=== PATIENT | female | born 1935 | race Caucasian/White ===

== ENCOUNTER → 2016-11-30 | Outpatient (CLI) | payer MEDICARE ==
[2016-11-30 07:56] LABS: Basophils # (A) 0.1 k/uL (0-0.2); Basophils % (A) 1 %; CH 30.8; CHCM 31.8; Eosinophils # (A) 0.1 k/uL (0-0.7); Eosinophils % (A) 1 %; HCT 41.7 % (34.0-46.0); HDW 2.13; HGB 13.2 gm/dL (11.4-16.0); Luc # (Auto) 0.15; Luc % (Auto) 2; Lymphocytes % (A) 14 %; MCH 30.7 pg (25.0-35.0); MCHC 31.6 g/dL (31.0-37.0); MCV 97.3 fL (80.0-100.0); Mean Platelet Volume 6.9; Monocytes # (A) 0.4 k/uL (0-1.0); Monocytes % (A) 5 %; Neutrophils # (A) 5.8 k/uL (1.3-7.7); Neutrophils % (A) 78 %; RBC 4.29 m/uL (3.80-5.40); RDW 13.4 % (11.5-15.5); WBC 7.4 k/uL (3.8-10.6); WBC (Perox) 7.74
[2016-11-30 08:10] LABS: ALT 29 U/L (9-52); AST 23 U/L (14-36); Alkaline Phosphatase 61 U/L (38-126); Anion Gap 8 mmol/L; Blood Urea Nitrogen 17 mg/dL (7-17); Calcium 9.5 mg/dL (8.4-10.2); Carbon Dioxide 33 mmol/L (22-30); Chloride 101 mmol/L (98-107); Cholesterol 191 mg/dL (<200); Glucose 93 mg/dL (74-99); HDL Cholesterol 81 mg/dL (40-60); Non-African American GFR(MDRD) >60 (>60 ml/min/1.73 sqM); Potassium 3.7 mmol/L (3.5-5.1); Sodium 142 mmol/L (137-145); Total Bilirubin 0.7 mg/dL (0.2-1.3); Total Protein 6.9 g/dL (6.3-8.2); Triglycerides 91 mg/dL (<150)
== END ==
LOC: LABWHC1 07:17
PROVIDERS: ATTEND Internal Medicine Geriatric Medicine
DX: I10 Essential (primary) hypertension (principal); E78.00 Pure hypercholesterolemia, unspecified; E03.9 Hypothyroidism, unspecified; E55.9 Vitamin D deficiency, unspecified
CPT/HCPCS: 36415; 80053; 80061; 82306; 84439; 84443; 85025

== ENCOUNTER → 2017-07-16 | Outpatient (CLI) | payer MEDICARE ==
--- NOTE | 2017-07-17 10:35 | MM ---
Reason for exam: screening (asymptomatic). Last mammogram was performed 1 year ago. History: Patient is postmenopausal and history of other cancer. Family history of breast cancer in sister at age 60. Benign ultrasound-guided core biopsy of the left breast, February 16, 2004. Benign ultrasound-guided core biopsy of the right breast, August 06, 2003. Took hormonal contraceptives for 10 years beginning at age 32. Took estrogen for 10 years beginning at age 52. Physical Findings: A clinical breast exam by your physician is recommended on an annual basis and results should be correlated with mammographic findings. MG 3D Screening Mammo W/Cad Bilateral CC and MLO view(s) were taken. Prior study comparison: July 10, 2016, bilateral MG 3d screening mammo w/cad. March 18, 2015, bilateral MG screening mammo w CAD. The breast tissue is heterogeneously dense. This may lower the sensitivity of mammography. Previous mammotome biopsy within the left breast. Focal asymmetry upper outer quadrant of the right breast, stable. No significant changes when compared with prior studies. ASSESSMENT: Benign, BI-RAD 2 RECOMMENDATION: Routine screening mammogram of both breasts in 1 year.
== END | disposition home or self-care (01) ==
LOC: RADMAMWWP 09:58
PROVIDERS: ATTEND Internal Medicine Geriatric Medicine
DX: Z12.31 Encounter for screening mammogram for malignant neoplasm of breast (principal)
CPT/HCPCS: 77063; G0202

== ENCOUNTER → 2018-07-25 | Outpatient (CLI) | payer MEDICARE ==
--- NOTE | 2018-07-28 11:57 | MM ---
Reason for exam: screening (asymptomatic). Last mammogram was performed 1 year ago. History: Patient is postmenopausal and history of other cancer. Family history of breast cancer in sister at age 60. Benign ultrasound-guided core biopsy of the left breast, February 16, 2004. Benign ultrasound-guided core biopsy of the right breast, August 06, 2003. Took hormonal contraceptives for 10 years beginning at age 32. Took estrogen for 10 years beginning at age 52. Physical Findings: A clinical breast exam by your physician is recommended on an annual basis and results should be correlated with mammographic findings. MG 3D Screening Mammo W/Cad Bilateral CC and MLO view(s) were taken. XCCL view(s) were taken of the right breast. Prior study comparison: July 16, 2017, bilateral MG 3d screening mammo w/cad. July 10, 2016, bilateral MG 3d screening mammo w/cad. Finding #1: There is a 12 mm equal density (isodense), round mass in the upper outer quadrant of the right breast. Finding #2: There are typically benign calcifications in both breasts. Previous mammotome biopsy in the left breast. No significant changes in finding since July 16, 2017 and July 10, 2016. ASSESSMENT: Benign, BI-RAD 2 RECOMMENDATION: Routine screening mammogram of both breasts in 1 year.
== END | disposition home or self-care (01) ==
LOC: RADMAMWWP 11:02
PROVIDERS: ATTEND Internal Medicine Geriatric Medicine
DX: Z12.31 Encounter for screening mammogram for malignant neoplasm of breast (principal)
CPT/HCPCS: 77063; 77067

== ENCOUNTER → 2018-08-06 | Outpatient (CLI) | payer MEDICARE ==
--- NOTE | 2018-08-06 12:04 | BD ---
EXAMINATION TYPE: Axial Bone Density DATE OF EXAM: 08/06/2018 CLINICAL HISTORY: Height: 61 inches Weight: 126 pounds FRAX RISK QUESTIONS: Alcohol (3 or more units per day): no Family History (Parent hip fracture): no Glucocorticoids (More than 3mos): no (Ex: prednisone, prednisolone, methylprednisolone, dexamethasone, and hydrocortisone). History of Fracture in Adulthood: no Secondary Osteoporosis: 1. Type 1 Diabetes: no 2. Hyperthyroidism: unsure 3. Menopause before 45: no 4. Malnutrition: no 5. Chronic liver disease: no Rheumatoid Arthritis: no Current Tobacco Use: no RISK FACTORS HISTORY OF: Family History of Osteoporosis: yes Active: yes Diet low in dairy products/other sources of calcium: no Postmenopausal woman: yes Take estrogen and/or progesterone medications: not now How long: Hormonal Contraceptives about 10 years, Estrogen about 10 years Lost more than 2 inches in height since high school: no Frequent falls: no Poor Health: no Hyperparathyroidism: no Adrenal Insufficiency: no MEDICATIONS: Prednisone or other steroids: no Thyroid Medications: yes Which medication: Levothyroxine (low dose) How Long: about 10 years Osteoporosis Medications: no Additional Medications: blood pressure med Additional History: EXAM MEASUREMENTS: Bone mineral densitometry was performed using the [employer] System. Bone mineral density as measured about the Lumbar spine is: ----- L1-L4(G/cm2): 1.448 T Score Values are as follows: ----- L2: 2.3 ----- L3: 2.0 ----- L4: 2.3 ----- L1-L4: 2.2 Bone mineral density has: Decreased -2.5% since study of: 07/30/2016 Bone mineral density about the R hip (g/cm2): 0.943 Bone mineral density about the L hip (g/cm2): 0.955 T Score values are as follows: -----R Neck: -0.7 -----L Neck: -0.6 -----R Total: 0.3 -----L Total: 1.0 Bone mineral density has: Decreased -0.2% since study of: 07/30/2016 IMPRESSION: Normal (Values between +1 and -1 indicate normal bone mass). Consider repeating this study in 5 year s or sooner if there is some new clinical indication. NOTE: T-SCORE=SD OF THE YOUNG ADULT MEAN.
== END | disposition home or self-care (01) ==
LOC: RADBDWWP 07-29 15:21
PROVIDERS: ATTEND Internal Medicine Geriatric Medicine
DX: M81.0 Age-related osteoporosis without current pathological fracture (principal)
CPT/HCPCS: 77080

== ENCOUNTER → 2019-03-10 | Outpatient (CLI) | payer MEDICARE ==
--- NOTE | 2019-03-10 13:31 | XR ---
EXAMINATION TYPE: XR KUB DATE OF EXAM: 03/10/2019 1:26 PM CLINICAL HISTORY: Abdominal and back pain TECHNIQUE: 2 supine KUB images of the abdomen are obtained. COMPARISON: None. FINDINGS: Scattered gas is seen in non-distended small bowel loops. Gas and fecal material is seen in non-distended colon. There is no visceromegaly, pneumoperitoneum, or abnormal calcification apprecia fanta. Elevated right hemidiaphragm. Multilevel moderate spurring of the thoracic spine. IMPRESSION: Overall nonobstructive bowel gas pattern.
--- NOTE | 2019-03-10 13:36 | XR ---
EXAMINATION TYPE: XR thoracic spine complete DATE OF EXAM: 03/10/2019 CLINICAL HISTORY: Midback pain for 2 to 3 weeks TECHNIQUE: Frontal, lateral, and swimmer's view of thoracic spine are obtained. COMPARISON: None. FINDINGS: Thoracic spine show loss of normal thoracic curvature with without evidence of acute fractu re or dislocation. Vertebral body heights and disc space heights are preserved. Mild multilevel spur ring is seen. Visualized ribs are unremarkable bilaterally. IMPRESSION: As above.
== END | disposition home or self-care (01) ==
LOC: RADXRMAIN 12:53
PROVIDERS: ATTEND Nurse Practitioner Family
DX: M43.8X4 Other specified deforming dorsopathies, thoracic region (principal)
CPT/HCPCS: 72072; 74018

== ENCOUNTER → 2019-07-31 | Outpatient (CLI) | payer MEDICARE ==
--- NOTE | 2019-08-03 11:15 | MM ---
Reason for exam: screening (asymptomatic). Last mammogram was performed 1 year ago. History: Patient is postmenopausal and history of other cancer. Family history of breast cancer in sister at age 60. Benign ultrasound-guided core biopsy of the left breast, February 16, 2004. Benign ultrasound-guided core biopsy of the right breast, August 06, 2003. Took hormonal contraceptives for 10 years beginning at age 32. Took estrogen for 10 years beginning at age 52. Physical Findings: A clinical breast exam by your physician is recommended on an annual basis and results should be correlated with mammographic findings. MG 3D Screening Mammo W/Cad Bilateral CC and MLO view(s) were taken. XCCL view(s) were taken of the right breast. Prior study comparison: July 25, 2018, bilateral MG 3d screening mammo w/cad. July 16, 2017, bilateral MG 3d screening mammo w/cad. The breast tissue is heterogeneously dense. This may lower the sensitivity of mammography. There is a stable 12 mm right upper outer quadrant mass back to 2015. Benign appearing bilateral calcifications. No suspicious abnormality. Left biopsy marker noted. No significant changes when compared with prior studies. ASSESSMENT: Benign, BI-RAD 2 RECOMMENDATION: Routine screening mammogram of both breasts in 1 year.
== END | disposition home or self-care (01) ==
LOC: RADMAMWWP 09:53
PROVIDERS: ATTEND Internal Medicine Geriatric Medicine
DX: Z12.31 Encounter for screening mammogram for malignant neoplasm of breast (principal)
CPT/HCPCS: 77063; 77067

== ENCOUNTER → 2019-08-31 | Outpatient (CLI) | payer MEDICARE ==
--- NOTE | 2019-09-01 08:41 | US ---
EXAMINATION TYPE: US kidneys/renal and bladder DATE OF EXAM: 08/31/2019 COMPARISON: NONE CLINICAL HISTORY: N20.0 Kidney Stone. h/o renal stones, last episode of pain was in February, unsure if s he passed them or not. No current symptoms EXAM MEASUREMENTS: Right Kidney: 9.3 x 4.5 x 4.4 cm Left Kidney: 10.3 x 4.3 x 5.6 cm *bowel gas limits exam Right Kidney: No hydronephrosis or masses seen Left Kidney: No hydronephrosis or masses seen Bladder: wnl There is no evidence for hydronephrosis at this point in time. No nephrolithiasis is seen. No afsaneh s are identified. The urinary bladder is anechoic. Bilateral ureteral jets are seen. IMPRESSION: No sonographic evidence of nephrolithiasis or hydronephrosis although overlying bowel gas slightly limits exam.
== END | disposition home or self-care (01) ==
LOC: RADUSWWP 16:02
PROVIDERS: ATTEND Internal Medicine Geriatric Medicine
DX: N20.0 Calculus of kidney (principal)
CPT/HCPCS: 76770

== ENCOUNTER → 2020-11-30 | Outpatient (CLI) | payer MEDICARE ==
--- NOTE | 2020-11-30 16:01 | BD ---
EXAMINATION TYPE: Axial Bone Density DATE OF EXAM: 11/30/2020 COMPARISON: NONE CLINICAL HISTORY: Height: 61 Weight: 130.1 FRAX RISK QUESTIONS: Alcohol (3 or more units per day): no Family History (Parent hip fracture): no Glucocorticoids (More than 3mos): no (Ex: prednisone, prednisolone, methylprednisolone, dexamethasone, and hydrocortisone). History of Fracture in Adulthood: no Secondary Osteoporosis: 1. Type 1 Diabetes: no 2. Hyperthyroidism: no 3. Menopause before 45: no 4. Malnutrition: no 5. Chronic liver disease: no Rheumatoid Arthritis: no Current Tobacco Use: no RISK FACTORS HISTORY OF: Surgery to Spine/Hip(right/left)/Wrist (right/left): no Family History of Osteoporosis: yes Active: yes Diet low in dairy products/other sources of calcium: yes Postmenopausal woman: age 53 Lost more than 2 inches in height since high school: no MEDICATIONS: Thyroid Medications: synthroid How Lon years Additional History: EXAM MEASUREMENTS: Bone mineral densitometry was performed using the [employer] System. Bone mineral density as measured about the Lumbar spine is: ----- L1-L4(G/cm2): 1.443 T Score Values are as follows: ----- L2: 2.5 ----- L3: 1.9 ----- L4: 2.4 ----- L1-L4: 2.2 Bone mineral density has: increased 0.3 % since study of: 08.06.2018 Bone mineral density about the R hip (g/cm2): 0.951 Bone mineral density about the L hip (g/cm2): 0.943 T Score values are as follows: -----R Neck: -0.6 -----L Neck: -0.7 -----R Total: 0.1 -----L Total: 0.8 Bone mineral density has: decreased -2.7 % since study of: 08.06.2018 IMPRESSION: No evidence for osteoporosis or osteopenia. NOTE: T-SCORE=SD OF THE YOUNG ADULT MEAN.
--- NOTE | 2020-12-02 12:09 | MM ---
Reason for exam: screening (asymptomatic). Last mammogram was performed 1 year and 4 months ago. History: Patient is postmenopausal and history of other cancer. Family history of breast cancer in sister at age 60. Benign ultrasound-guided core biopsy of the left breast, February 16, 2004. Benign ultrasound-guided core biopsy of the right breast, August 06, 2003. Took hormonal contraceptives for 10 years beginning at age 32. Took estrogen for 10 years beginning at age 52. Physical Findings: A clinical breast exam by your physician is recommended on an annual basis and results should be correlated with mammographic findings. MG 3D Screening Mammo W/Cad Bilateral CC and MLO view(s) were taken. Prior study comparison: July 31, 2019, bilateral MG 3d screening mammo w/cad. July 25, 2018, bilateral MG 3d screening mammo w/cad. The breast tissue is heterogeneously dense. This may lower the sensitivity of mammography. Previous mammotome biopsy in the left breast. There is chronic nodularity in the right breast. Benign vascular calcifications. No significant changes when compared with prior studies. ASSESSMENT: Benign, BI-RAD 2 RECOMMENDATION: Routine screening mammogram of both breasts in 1 year.
== END | disposition home or self-care (01) ==
LOC: RADMAMWWP 13:35
PROVIDERS: ATTEND Internal Medicine Geriatric Medicine
DX: Z12.31 Encounter for screening mammogram for malignant neoplasm of breast (principal); Z13.820 Encounter for screening for osteoporosis; Z78.0 Asymptomatic menopausal state; Z80.3 Family history of malignant neoplasm of breast
CPT/HCPCS: 77063; 77067; 77080

== ENCOUNTER 2020-12-12 05:49 | Emergency (ER) | payer MEDICARE ==
[2020-12-12 05:55] VITALS: RESP 18
[2020-12-12] MEDS ORDERED: SODIUM CHLORIDE 0.9% 500 ML 500 ML IV STA (06:16)
[2020-12-12] MEDS ORDERED: PANTOPRAZOLE 40 MG/10 ML VIAL IVP STA (06:17)
[2020-12-12] MEDS ORDERED: ONDANSETRON 4 MG/2 ML VIAL IVP STA (06:17)
--- NOTE | 2020-12-12 06:23 | ED ---
General Adult HPI - General Chief complaint: Nausea/Vomiting/Diarrhea Stated complaint: Abd Pain Time Seen by Provider: 12/12/20 05:59 Source: patient, RN notes reviewed Mode of arrival: ambulatory Limitations: no limitations - History of Present Illness Initial comments: 85-year-old female with a past medical history of hypertension, colitis presents to the emergency room for diarrhea. Patient reports that her and her went out T last night. States that she ate a [employer] sandwich and coleslaw. States on the way home she started to have an abdominal cramp. Patient states she had an episode of diarrhea. Patient states throughout the night she has had very small abscess at the diarrhea. However into the morning she started to pass some bright red blood and became concerned. Patient denies any abdominal pain. Patient has no other complaints at this time including shortness of breath, chest pain, abdominal pain, headache, or visual changes. - Related Data Home Medications Medication Instructions Recorded Confirmed Levothyroxine Sodium [Synthroid] 25 mcg PO DAILY 08/11/15 12/12/20 Ketorolac 0.5% Ophth Soln [Acular] 1 drop BOTH EYES QID 12/12/20 12/12/20 Losartan/Hydrochlorothiazide 1 tab PO DAILY 12/12/20 12/12/20 [Hyzaar 100-12.5 Tablet] Ofloxacin 0.3% Ophth Soln [Ocuflox 1 drop BOTH EYES TID 12/12/20 12/12/20 Ophth Soln] clonazePAM [KlonoPIN] 1 mg PO HS 12/12/20 12/12/20 Allergies Allergy/AdvReac Type Severity Reaction Status Date / Time hydromorphone HCl AdvReac dizziness Verified 12/12/20 07:30 [From Dilaudid] morphine AdvReac Nausea & Verified 12/12/20 07:30 Vomiting procaine HCl [From Novocain] AdvReac Rapid Verified 12/12/20 07:30 Heart Rate Review of Systems ROS Statement: Those systems with pertinent positive or pertinent negative responses have been documented in the HPI. ROS Other: All systems not noted in ROS Statement are negative. Past Medical History Past Medical History: Hypertension Additional Past Medical History / Comment(s): currently having diarrhea and nausea History of Any Multi-Drug Resistant Organisms: None Reported Past Surgical History: Hysterectomy Additional Past Surgical History / Comment(s): colonoscopy, cystocele & rectocele,bunnionectomies Past Anesthesia/Blood Transfusion Reactions: Motion Sickness Additional Past Anesthesia/Blood Transfusion Reaction / Comment(s): vertigo Past Psychological History: No Psychological Hx Reported Smoking Status: Never smoker Past Alcohol Use History: Occasional Past Drug Use History: None Reported - Past Family History Sister(s) Family Medical History: Cancer Additional Family Medical History / Comment(s): breast Father Family Medical History: Cancer Additional Family Medical History / Comment(s): prostate Mother Family Medical History: Coronary Artery Disease (CAD), Hypertension General Exam Limitations: no limitations General appearance: alert, in no apparent distress Head exam: Present: atraumatic, normocephalic, normal inspection Eye exam: Present: normal appearance, PERRL, EOMI. Absent: scleral icterus, conjunctival injection, periorbital swelling ENT exam: Present: normal exam, mucous membranes moist Neck exam: Present: normal inspection, full ROM. Absent: tenderness, meningismus, lymphadenopathy Respiratory exam: Present: normal lung sounds bilaterally. Absent: respiratory distress, wheezes, rales, rhonchi, stridor Cardiovascular Exam: Present: regular rate, normal rhythm, normal heart sounds. Absent: systolic murmur, diastolic murmur, rubs, gallop, clicks GI/Abdominal exam: Present: soft, normal bowel sounds. Absent: distended, tenderness, guarding, rebound, rigid Rectal exam: Present: normal rectal tone, hemorrhoids. Absent: bloody stool Neurological exam: Present: alert Course Vital Signs 12/12/20 05:51 Temperature 97.9 F Pulse Rate 96 Respiratory 18 Rate Blood Pressure 172/92 O2 Sat by Pulse 98 Oximetry Medical Decision Making - Medical Decision Making Vitals are stable. Patient is well appearing. CBC CMP unremarkable. Lipase is noted to be 740. Patient denies any upper abdominal pain. Urinalysis unremarkable. CT abdomen and pelvis did reveal moderate to severe inflammation with edematous thickening of the rectum and short segment colitis along the upper descending colon. Correlate for infectious or inflammatory cause. There is also some evidence of enteritis along the duodenum. The patient's symptoms. There were several incidental findings including the kidney, pancreas, lung, and ovary. I recommended she follow up with Dr. Alegre to review these results. She prefers outpatient management. At this time recommended supportive treatment for her nausea vomiting diarrhea. She will monitor her symptoms. If bleeding worsens she'll return to the emergency room. Right now she reports only a very small amount with the diarrhea. She was also given GI follow-up. She will return here for any worsening symptoms. - Lab Data Result diagrams: 12/12/20 06:24 12/12/20 06:24 Lab Results 12/12/20 12/12/20 12/12/20 Range/Units 06:24 06:24 06:24 WBC 10.1 (3.8-10.6) k/uL RBC 4.35 (3.80-5.40) m/uL Hgb 13.7 (11.4-16.0) gm/dL Hct 40.0 (34.0-46.0) % MCV 92.0 (80.0-100.0) fL MCH 31.6 (25.0-35.0) pg MCHC 34.3 (31.0-37.0) g/dL RDW 12.8 (11.5-15.5) % Plt Count 244 (150-450) k/uL MPV 7.3 Neutrophils % 82 % Lymphocytes % 11 % Monocytes % 5 % Eosinophils % 1 % Basophils % 0 % Neutrophils # 8.3 H (1.3-7.7) k/uL Lymphocytes # 1.2 (1.0-4.8) k/uL Monocytes # 0.5 (0-1.0) k/uL Eosinophils # 0.1 (0-0.7) k/uL Basophils # 0.0 (0-0.2) k/uL PT (9.0-12.0) sec INR (<1.2) APTT (22.0-30.0) sec Sodium 137 (137-145) mmol/L Potassium 3.5 (3.5-5.1) mmol/L Chloride 101 (98-107) mmol/L Carbon Dioxide 31 H (22-30) mmol/L Anion Gap 5 mmol/L BUN 20 H (7-17) mg/dL Creatinine 0.77 (0.52-1.04) mg/dL Est GFR (CKD-EPI)AfAm 83 (>60 ml/min/1.73 sqM) Est GFR (CKD-EPI)NonAf 72 (>60 ml/min/1.73 sqM) Glucose 106 H (74-99) mg/dL Calcium 9.4 (8.4-10.2) mg/dL Total Bilirubin 0.4 (0.2-1.3) mg/dL AST 24 (14-36) U/L ALT 17 (4-34) U/L Alkaline Phosphatase 66 (38-126) U/L Total Protein 7.1 (6.3-8.2) g/dL Albumin 4.2 (3.5-5.0) g/dL Amylase 105 (30-110) U/L Lipase 740 H (23-300) U/L Urine Color Light Yellow Urine Appearance Clear (Clear) Urine pH 7.0 (5.0-8.0) Ur Specific [place] 1.002 (1.001-1.035) Urine Protein Negative (Negative) Urine Glucose (UA) Negative (Negative) Urine Ketones Negative (Negative) Urine Blood Negative (Negative) Urine Nitrite Negative (Negative) Urine Bilirubin Negative (Negative) Urine Urobilinogen <2.0 (<2.0) mg/dL Ur Leukocyte Esterase Small H (Negative) Urine RBC <1 (0-5) /hpf Urine WBC 3 (0-5) /hpf Ur Squamous Epith Cells 3 (0-4) /hpf Stool Occult Blood (Negative) Coronavirus (PCR) (Not Detectd) 12/12/20 12/12/20 12/12/20 Range/Units 06:44 06:44 06:44 WBC (3.8-10.6) k/uL RBC (3.80-5.40) m/uL Hgb (11.4-16.0) gm/dL Hct (34.0-46.0) % MCV (80.0-100.0) fL MCH (25.0-35.0) pg MCHC (31.0-37.0) g/dL RDW (11.5-15.5) % Plt Count (150-450) k/uL MPV Neutrophils % % Lymphocytes % % Monocytes % % Eosinophils % % Basophils % % Neutrophils # (1.3-7.7) k/uL Lymphocytes # (1.0-4.8) k/uL Monocytes # (0-1.0) k/uL Eosinophils # (0-0.7) k/uL Basophils # (0-0.2) k/uL PT 10.0 (9.0-12.0) sec INR 0.9 (<1.2) APTT 20.1 L (22.0-30.0) sec Sodium (137-145) mmol/L Potassium (3.5-5.1) mmol/L Chloride (98-107) mmol/L Carbon Dioxide (22-30) mmol/L Anion Gap mmol/L BUN (7-17) mg/dL Creatinine (0.52-1.04) mg/dL Est GFR (CKD-EPI)AfAm (>60 ml/min/1.73 sqM) Est GFR (CKD-EPI)NonAf (>60 ml/min/1.73 sqM) Glucose (74-99) mg/dL Calcium (8.4-10.2) mg/dL Total Bilirubin (0.2-1.3) mg/dL AST (14-36) U/L ALT (4-34) U/L Alkaline Phosphatase (38-126) U/L Total Protein (6.3-8.2) g/dL Albumin (3.5-5.0) g/dL Amylase (30-110) U/L Lipase (23-300) U/L Urine Color Urine Appearance (Clear) Urine pH (5.0-8.0) Ur Specific [place] (1.001-1.035) Urine Protein (Negative) Urine Glucose (UA) (Negative) Urine Ketones (Negative) Urine Blood (Negative) Urine Nitrite (Negative) Urine Bilirubin (Negative) Urine Urobilinogen (<2.0) mg/dL Ur Leukocyte Esterase (Negative) Urine RBC (0-5) /hpf Urine WBC (0-5) /hpf Ur Squamous Epith Cells (0-4) /hpf Stool Occult Blood Positive H (Negative) Coronavirus (PCR) Not Detected (Not Detectd) Disposition Clinical Impression: Hematochezia, Diarrhea, Colitis Disposition: HOME SELF-CARE Condition: Good Instructions (If sedation given, give patient instructions): Acute Diarrhea (ED), Gastrointestinal Bleeding (ED) Additional Instructions: Please drink plenty of fluids. Try a bland diet. Follow-up with Dr. Alegre to go over your symptoms as well as review your CAT scan results. Follow up with GI as well. Return to the emergency room for any worsening symptoms. Is patient prescribed a controlled substance at d/c from ED?: No Referrals: Augustin Alegre MD [Primary Care Provider] - 1-2 days Doretha Llamas MD [STAFF PHYSICIAN] - 1-2 days Time of Disposition: 08:10
[2020-12-12 06:35] LABS: Basophils % (A) 0 %; Eosinophils # (A) 0.1 k/uL (0-0.7); Eosinophils % (A) 1 %; HGB 13.7 gm/dL (11.4-16.0); Lymphocytes # (A) 1.2 k/uL (1.0-4.8); Lymphocytes % (A) 11 %; MCH 31.6 pg (25.0-35.0); MCHC 34.3 g/dL (31.0-37.0); Mean Platelet Volume 7.3; Monocytes # (A) 0.5 k/uL (0-1.0); Monocytes % (A) 5 %; Neutrophils # (A) 8.3 k/uL (1.3-7.7); Neutrophils % (A) 82 %; Platelet Count 244 k/uL (150-450); RBC 4.35 m/uL (3.80-5.40); RDW 12.8 % (11.5-15.5); WBC 10.1 k/uL (3.8-10.6)
[2020-12-12 06:36] LABS: Appearance,Urine Clear (Clear); Bilirubin,Urine Negative (Negative); Blood,Urine Negative (Negative); Color,Urine Light Yellow; Glucose,Urine (UA) Negative (Negative); Ketones,Urine Negative (Negative); Leukocyte Esterase,Urine Small (Negative); Nitrite,Urine Negative (Negative); Protein,Urine Negative (Negative); RBC,Urine <1 /hpf (0-5); Specific Gravity,Urine 1.002 (1.001-1.035); Squamous Epithelial Cell,Urine 3 /hpf (0-4); Urobilinogen,Urine <2.0 mg/dL (<2.0); WBC,Urine 3 /hpf (0-5)
[2020-12-12 06:52] LABS: Albumin 4.2 g/dL (3.5-5.0); Calcium 9.4 mg/dL (8.4-10.2); Potassium 3.5 mmol/L (3.5-5.1); Total Bilirubin 0.4 mg/dL (0.2-1.3); Total Protein 7.1 g/dL (6.3-8.2)
[2020-12-12 07:17] LABS: INR 0.9 (<1.2)
[2020-12-12 07:24] LABS: Partial Thromboplastin Time 20.1 sec (22.0-30.0)
--- NOTE | 2020-12-12 07:47 | CT ---
EXAMINATION TYPE: CT abdomen pelvis w con DATE OF EXAM: 12/12/2020 COMPARISON: NONE HISTORY: 85-year-old female abdominal pain, hematochezia. Diarrhea, cramping. TECHNIQUE: Contiguous axial scanning of the abdomen and pelvis following administration of 100 ml Iso yvette 300 IV contrast. Delayed images through the kidneys and coronal/sagittal reconstructions perform ed. CT DLP: 651.6 mGycm Automated exposure control for dose reduction was used. FINDINGS: The heart is upper limits of normal in size without pericardial effusion. Strandy atelectasis in the lower lungs. Indeterminate 5 mm subpleural pulmonary nodule posterior left base. No pleural effusion. Tiny hiatal hernia. A few scattered hepatic hypodensities, most of which are too small for accurate CT characterization, largest in the central left liver lobe measuring 3.2 cm compatible with cyst. Portal venous system is patent. No biliary ductal dilatation. Possible tiny 3 mm calculus at the fundus of the gallbladder. No abnormal gallbladder distention. Mild diffuse thickening of the left adrenal gland without discrete nodularity. Scattered renal cortical hypodensities, largest at the left lower pole measuring 1.3 cm. These are to o small for accurate CT characterization, likely cysts. One lesion along the anterior lower pole of t [place] right kidney measures 9 mm and shows intermediate attenuation. This could represent a, complicated cyst or small solid mass and follow-up is recommended. Extrarenal pelvis of both kidneys. Main pancreatic duct is borderline dilated at 3 mm but no discrete mass is identified. There may be some mild fold thickening along the duodenum that may be correlated clinically. Spleen and right adrenal gland within normal limits. Small periumbilical hernia. No dilated small bowel, free fluid, or free air. Scattered nonenlarged and borderline sized mesenteric lymph nodes measuring up to 7 mm, axial image 3 6, probably reactive/post inflammatory. There is moderate stool within the ascending colon and cecum. Short segment of circumferential wall thickening along the upper descending colon, coronal image 36 a nd then also involving the rectum where there is moderate thickening and perirectal fat stranding, ax ial image detail and coronal image 62. There is mild sigmoid diverticulosis but no inflammation centered on the diverticula. Bladder is urine distended. Pelvic phleboliths. Uterus surgically absent. There is a 2.2 cm cyst of harley hwang left ovary. No abnormal fluid collection in the pelvis or pelvic lymphadenopathy Bones: Mild degenerative change of the hips. Moderate to advanced degenerative disc disease throughou t the lumbar spine and hypertrophic facet arthropathy throughout. IMPRESSION: 1. MODERATE TO SEVERE INFLAMMATION WITH EDEMATOUS THICKENING OF THE RECTUM AND SHORT SEGMENT COLITIS ALONG THE UPPER DESCENDING COLON. CORRELATE FOR INFECTIOUS OR INFLAMMATORY CAUSES. 2. MILD WALL THICKENING ALONG THE DUODENUM COULD REPRESENT A REGIONAL ENTERITIS. 3. A 9 MM CORTICAL LESION WITHIN THE RIGHT KIDNEY COULD REPRESENT A SMALL SOLID MASS OR A COMPLICATED CYST. SIX-MONTH FOLLOW-UP CT RECOMMENDED TO REASSESS. A 5 MM PULMONARY NODULE AT THE LEFT BASE CAN A LSO BE REASSESSED AT THAT TIME. 4. BORDERLINE DILATED MAIN PANCREATIC DUCT UP TO 3 MM. THIS COULD REFLECT SEQUELA OF PRIOR PANCREATIC INFLAMMATION. NO DISTAL OBSTRUCTING MASS IS IDENTIFIED. CORRELATE WITH AMYLASE AND LIPASE LEVELS. AT TENTION AT THE PATIENT'S 6 MONTH FOLLOW-UP. 5. A 2.2 CM LEFT OVARIAN CYST, ABNORMAL IN A POSTMENOPAUSAL FEMALE. NONEMERGENT FOLLOW-UP PELVIC ULTR ASOUND CAN FURTHER CHARACTERIZE AND DETERMINE SUBSEQUENT FOLLOW-UP.
[2020-12-12 08:23] VITALS: BP 154/82; PULSE 70; TEMP 98.9
== END 2020-12-12 08:26 | disposition home or self-care (01) ==
LOC: EC 05:49
DX: K52.9 Noninfective gastroenteritis and colitis, unspecified (principal); K92.1 Melena; I10 Essential (primary) hypertension; Z90.710 Acquired absence of both cervix and uterus
CPT/HCPCS: 36415; 80053; 82150; 83690; 85025; 85610; 85730; 82272; 81001; 87635; 74177; 99284; 96374; 96375; 96361; J2405; C9113; Q9967

== ENCOUNTER → 2021-01-05 | Outpatient (CLI) | payer MEDICARE ==
[2021-01-05 12:48] LABS: Basophils % (A) 1 %; Eosinophils % (A) 1 %; HCT 41.7 % (34.0-46.0); HGB 13.2 gm/dL (11.4-16.0); Lymphocytes # (A) 0.9 k/uL (1.0-4.8); Lymphocytes % (A) 14 %; MCH 29.9 pg (25.0-35.0); MCHC 31.7 g/dL (31.0-37.0); MCV 94.2 fL (80.0-100.0); Mean Platelet Volume 7.2; Monocytes # (A) 0.2 k/uL (0-1.0); Monocytes % (A) 4 %; Neutrophils # (A) 4.9 k/uL (1.3-7.7); Neutrophils % (A) 79 %; Platelet Count 264 k/uL (150-450); RBC 4.42 m/uL (3.80-5.40); RDW 13.3 % (11.5-15.5); WBC 6.2 k/uL (3.8-10.6)
[2021-01-05 12:50] LABS: Albumin 4.1 g/dL (3.5-5.0); Calcium 9.5 mg/dL (8.4-10.2); Potassium 4.2 mmol/L (3.5-5.1); Total Bilirubin 0.5 mg/dL (0.2-1.3); Total Protein 6.9 g/dL (6.3-8.2)
--- NOTE | 2021-01-05 15:43 | CT ---
EXAMINATION TYPE: CT abdomen pelvis w con DATE OF EXAM: 01/05/2021 COMPARISON: 12/12/2020 HISTORY: abdominal pain, hx of colitis CT DLP: 421.7 mGycm Automated exposure control for dose reduction was used. CONTRAST: Performed with IV Contrast, patient injected with 100 mL of Isovue 300. Images obtained from the diaphragm to the floor the pelvis with oral and IV contrast. Lung bases are clear. There is no pleural effusion. Heart appears enlarged. Liver spleen stomach panc reas gallbladder appear intact. Bile ducts are not dilated. There is 3.3 cm cyst in the left lobe of the liver. There is 1.5 cm cyst inferior right lobe of the liver. There is no evidence of pancreatic mass. There is no adrenal mass. Kidneys show satisfactory contrast opacification. There is no hydronephrosi s. There is 1 cm exophytic density over the anterior lower pole right kidney which could be atypical cyst. Unchanged. There is 1.5 cm irregular cyst lower pole left kidney unchanged. There is no evidenc e of renal obstruction. Ureters are not dilated. There is no retroperitoneal adenopathy. The bladder distends smoothly. There is no inguinal hernia. There is normal contrast opacification of the small b owel. There is no bowel obstruction. There is no mesenteric edema. There is no ascites or free air. T here is 2 cm fat-containing umbilical hernia unchanged. Lumbar vertebra appear intact. There is no compression fracture. The bony pelvis is intact. There is sclerosis in the superior right femoral head with subchondral cystic changes. This probably relates t o osteoarthritis. Avascular necrosis also possible. There is no evidence of thickened appendix. Appendix not seen. IMPRESSION: Hepatic cysts unchanged. Atypical cyst lower pole right kidney unchanged. There is clearing of the mi ld inflammatory changes at the rectosigmoid junction compared to old exam. No evidence of colitis. Chronic changes in the right femoral head as above appear stable.
== END | disposition home or self-care (01) ==
LOC: RADCTMAIN 11:49
PROVIDERS: ATTEND Internal Medicine Geriatric Medicine
DX: K76.89 Other specified diseases of liver (principal); N28.1 Cyst of kidney, acquired
CPT/HCPCS: 80053; 82150; 83690; 85025; 74177; 36415; Q9967

== ENCOUNTER → 2021-03-21 | Outpatient (CLI) | payer MEDICARE ==
--- NOTE | 2021-03-21 09:17 | US ---
EXAMINATION TYPE: US abdomen complete DATE OF EXAM: 03/21/2021 COMPARISON: CT 01/05/2021 CLINICAL HISTORY: K52.9 Colitis. EXAM MEASUREMENTS: Liver Length: 12.8 cm Gallbladder Wall: 0.1 cm CBD: 0.4 cm Spleen: 7.9 cm Right Kidney: 9.9 x 3.6 x 4.2 cm Left Kidney: 8.9 x 4.7 x 4.1 cm Pancreas: Obscured by bowel gas Liver: Diffusely heterogeneous. Multiple cystic areas visualized, largest measuring 3.8 x 2.7 x 3.6 cm Gallbladder: Possible polyp visualized in the fundus measuring 0.5 x 0.6 x 0.4 cm Evidence for sonographic Felder's sign: No CBD: wnl Spleen: wnl Right Kidney: Multiple subcentimeter echogenic areas seen. Largest lower pole measuring 0.9 x 1.0 x 0.8 cm, possible angiomyolipomas Left Kidney: Possible angiomyolipoma visualized measuring 0.6 x 0.6 x 0.8 cm. Cystic area with calci fications measuring 1.0 x 1.5 x 1.5 cm Upper IVC: wnl Abd Aorta: wnl IMPRESSION: 1. Probable gallbladder polyp. 2. The liver is diffusely heterogenous likely reflecting hepatic steatosis with underlying cyst forma tion. 3. 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
== END | disposition home or self-care (01) ==
LOC: RADUSWWP 07:00
PROVIDERS: ATTEND Internal Medicine Geriatric Medicine
DX: K76.89 Other specified diseases of liver (principal)
CPT/HCPCS: 76700

== ENCOUNTER → 2021-12-22 | Outpatient (CLI) | payer MEDICARE ==
--- NOTE | 2021-12-22 11:56 | BD ---
EXAMINATION TYPE: Axial Bone Density DATE OF EXAM: 12/22/2021 COMPARISON: Prior DEXA bone scan 2020 CLINICAL HISTORY: 86 years year old Female. ICD-10 CODE: M1990 DXA BONE DENSITY, AXILLA BILATERAL Height: 5 FT 1/2 IN Weight: 123 FRAX RISK QUESTIONS: Alcohol (3 or more units per day): NO Family History (Parent hip fracture): NO Glucocorticoids (More than 3mos): NO (Ex: prednisone, prednisolone, methylprednisolone, dexamethasone, and hydrocortisone). History of Fracture in Adulthood: NO Secondary Osteoporosis: 1. Type 1 Diabetes: NO 2. Hyperthyroidism: NO 3. Menopause before 45: NO 4. Malnutrition: NO 5. Chronic liver disease: NO Rheumatoid Arthritis: NO Current Tobacco Use: NO RISK FACTORS HISTORY OF: Surgery to Spine/Hip(right/left)/Wrist (right/left): NO Family History of Osteoporosis: YES Active: YES Diet low in dairy products/other sources of calcium: NO Postmenopausal woman: YES Take estrogen and/or progesterone medications: NONE NOW Lost more than 2 inches in height since high school: NO Frequent falls: NO Poor Health: GOOD Hyperparathyroidism: NO Adrenal Insufficiency: NO MEDICATIONS: Thyroid Medications: YES Which medication: LEVOTHYROXINE How Lon PLUS YEARS Additional Medications: LEVOTHYROXINE ,BLOOD PRESSURE MEDS, CLINAZIPAN, Additional History: EXAM MEASUREMENTS: Bone mineral densitometry was performed using the bepretty System. Bone mineral density as measured about the Lumbar spine is: ----- L1-L4(G/cm2): 1.444 T Score Values are as follows: ----- L1: 2.1 ----- L2: 2.2 ----- L3: 2.0 ----- L4: 2.4 ----- L1-L4: 2.2 Bone mineral density has: DECREASED -0.6 % since study of: 2020 Bone mineral density about the R hip (g/cm2): 0.932 Bone mineral density about the L hip (g/cm2): 0.931 T Score values are as follows: -----R Neck: -0.8 -----L Neck: -0.8 -----R Total: -0.1 -----L Total: 0.6 Bone mineral density has: DECREASED -2.2 % since study of: 2020 FRAX%s: The graph provided illustrates a 10.5 % chance for a major osteoporotic fx and a 2.2 % chance for the hips probability for fx in 10 years time. IMPRESSION: Normal (Values between +1 and -1 indicate normal bone mass). Consider repeating this study in 5 year s or sooner if there is some new clinical indication. NOTE: T-SCORE=SD OF THE YOUNG ADULT MEAN.
--- NOTE | 2021-12-25 12:10 | MM ---
Reason for exam: screening (asymptomatic). Last mammogram was performed 1 year and 1 month ago. History: Patient is postmenopausal and history of other cancer. Family history of breast cancer in sister at age 60. Benign ultrasound-guided core biopsy of the left breast, February 16, 2004. Benign ultrasound-guided core biopsy of the right breast, August 06, 2003. Took hormonal contraceptives for 10 years beginning at age 32. Took estrogen for 10 years beginning at age 52. Physical Findings: A clinical breast exam by your physician is recommended on an annual basis and results should be correlated with mammographic findings. MG 3D Screening Mammo W/Cad Bilateral CC and MLO view(s) were taken. Prior study comparison: November 30, 2020, bilateral MG 3d screening mammo w/cad. July 31, 2019, bilateral MG 3d screening mammo w/cad. There are scattered fibroglandular densities. No significant changes when compared with prior studies. ASSESSMENT: Benign, BI-RAD 2 RECOMMENDATION: Routine screening mammogram of both breasts in 1 year.
== END | disposition home or self-care (01) ==
LOC: RADMAMWWP 09:56
PROVIDERS: ATTEND Internal Medicine Geriatric Medicine
DX: Z12.31 Encounter for screening mammogram for malignant neoplasm of breast (principal); M19.90 Unspecified osteoarthritis, unspecified site; Z78.0 Asymptomatic menopausal state; Z80.3 Family history of malignant neoplasm of breast
CPT/HCPCS: 77063; 77067; 77080

== ENCOUNTER → 2023-01-10 | Outpatient (CLI) | payer MEDICARE ==
--- NOTE | 2023-01-11 18:21 | MM ---
Reason for Exam: Screening (asymptomatic). Last mammogram was performed 1 year(s) and 1 month(s) ago. Patient History: Menarche at age 14. First Full-Term at age 23. Left ovary removed at age 61. Right ovary removed at age 61. Hysterectomy at age 61. Postmenopausal. Estrogen for 10 years from age 52 until age 62. Hormonal Contraceptives, starting at age 32 for 10 years. 02/16/2004, Benign Ultrasound-Guided Core Biopsy on the left side. 08/06/2003, Benign Ultrasound-Guided Core Biopsy on the right side. Sister had breast cancer, age 60. Risk Values: Raya 5 year model risk: 3.7%. NCI Lifetime model risk: 3.7%. Prior Study Comparison: 07/31/2019 Bilateral Screening Mammogram, [facility]. 11/30/2020 Bilateral Screening Mammogram, [facility]. 12/22/2021 Bilateral Screening Mammogram, [facility]. Tissue Density: The breast tissue is heterogeneously dense. This may lower the sensitivity of mammography. Findings: Analyzed By CAD. Microclip left breast from prior biopsy. 12:00 central focal asymmetry left breast appears more defined and incompletely disperses on 3 images. Further evaluation is recommended. Chronic nodularity upper outer quadrant right breast. Overall Assessment: Incomplete: need additional imaging evaluation, BI-RAD 0 Management: Special View Mammogram of the left breast. Diagnostic Breast Ultrasound of the left breast. Additional views for the focal asymmetry. Targeted ultrasound 11:00 to 1:[address] [facility] will attempt to contact patient to return for supplemental views and ultrasound if indicated. Electronically signed and approved by: Camelia Tobar M.D. Radiologist
== END | disposition home or self-care (01) ==
LOC: RADMAMWWP 09:53
PROVIDERS: ATTEND Internal Medicine Geriatric Medicine
DX: Z12.31 Encounter for screening mammogram for malignant neoplasm of breast (principal); Z78.0 Asymptomatic menopausal state; Z80.3 Family history of malignant neoplasm of breast
CPT/HCPCS: 77063; 77067

== ENCOUNTER → 2023-01-17 | Outpatient (CLI) | payer MEDICARE ==
--- NOTE | 2023-01-17 15:19 | MM ---
Reason for Exam: Additional evaluation requested from abnormal screening. Last screening mammogram was performed less than 1 month ago. Patient History: Menarche at age 14. First Full-Term at age 23. Left ovary removed at age 61. Right ovary removed at age 61. Hysterectomy at age 61. Postmenopausal. Estrogen for 10 years from age 52 until age 62. Hormonal Contraceptives, starting at age 32 for 10 years. 02/16/2004, Benign Ultrasound-Guided Core Biopsy on the left side. 08/06/2003, Benign Ultrasound-Guided Core Biopsy on the right side. Sister had breast cancer, age 60. Risk Values: Raya 5 year model risk: 3.7%. NCI Lifetime model risk: 3.7%. Prior Study Comparison: 11/30/2020 Bilateral Screening Mammogram, [facility]. 12/22/2021 Bilateral Screening Mammogram, [facility]. 01/10/2023 Bilateral MG 3D screening mammo w/cad, [facility]. Tissue Density: Left: The breast tissue is heterogeneously dense. This may lower the sensitivity of mammography. Findings: Analyzed By CAD. The questioned area of focal asymmetry centrally in the left breast disperses on spot 3-D views. Microclip lateral left breast from prior biopsy. Benign vascular calcifications redemonstrated. No persisting, suspicious abnormality is seen. Overall Assessment: Benign, BI-RAD 2 Management: Screening Mammogram of both breasts in 1 year. See note below in regards to patient's increased five-year Raya score. Results were given to the patient verbally at the time of exam. Patient should continue monthly self-breast exams. A clinical breast exam by your physician is recommended on an annual basis. This exam should not preclude additional follow-up of suspicious palpable abnormalities. Note on Raya scores and lifetime risk: 1. A Raya score greater than 3% is considered moderate risk. If this is the case, consider specialist referral to assess eligibility for a risk reducing agent. 2. If overall lifetime risk for the development of breast cancer is 20% or higher, the patient may qualify for future screening with alternating mammogram and breast MRI. Electronically signed and approved by: Camelia Tobar M.D. Radiologist
== END | disposition home or self-care (01) ==
LOC: RADMAMWWP 10:24
PROVIDERS: ATTEND Internal Medicine Geriatric Medicine
DX: R92.8 Other abnormal and inconclusive findings on diagnostic imaging of breast (principal); Z78.0 Asymptomatic menopausal state; Z80.3 Family history of malignant neoplasm of breast
CPT/HCPCS: 77065; G0279; 77061

== ENCOUNTER → 2023-01-28 | Outpatient (CLI) | payer MEDICARE ==
--- NOTE | 2023-01-28 14:33 | XR ---
EXAMINATION TYPE: XR knee complete RT DATE OF EXAM: 01/28/2023 CLINICAL HISTORY: Pain. TECHNIQUE: Three views of the right knee are obtained. COMPARISON: None. FINDINGS: There is no acute fracture/dislocation evident in right knee. Moderate narrowing with mild spurring patellofemoral compartment. [id number] narrowing medial and lateral tibiofemoral comp artments. The overlying soft tissue appears unremarkable. IMPRESSION: As above
== END | disposition home or self-care (01) ==
LOC: RADXRMAIN 14:10
PROVIDERS: ATTEND Physician Assistant
DX: M25.761 Osteophyte, right knee (principal)

== ENCOUNTER → 2024-02-11 | Outpatient (CLI) | payer MEDICARE ==
--- NOTE | 2024-02-12 10:22 | MM ---
Reason for Exam: Screening (asymptomatic). Last mammogram was performed 1 year(s) and 1 month(s) ago. Patient History: Menarche at age 14. First Full-Term at age 23. Left ovary removed at age 61. Right ovary removed at age 61. Hysterectomy at age 61. Postmenopausal. Estrogen for 10 years from age 52 until age 62. Hormonal Contraceptives, starting at age 32 for 10 years. 02/16/2004, Benign Ultrasound-Guided Core Biopsy on the left side. 08/06/2003, Benign Ultrasound-Guided Core Biopsy on the right side. Sister had breast cancer, age 60. Prior Study Comparison: 12/22/2021 Bilateral Screening Mammogram, [facility]. 01/10/2023 Bilateral MG 3D screening mammo w/cad, [facility]. 01/17/2023 Left MG 3D work up w/cad , [facility]. Tissue Density: The breasts are heterogeneously dense, which may obscure small masses. Findings: Analyzed By CAD. There is no suspicious group of microcalcifications or new suspicious mass in either breast. Overall Assessment: Benign, BI-RAD 2 Management: Screening Mammogram of both breasts in 1 year. . Patient should continue monthly self-breast exams. A clinical breast exam by your physician is recommended on an annual basis. This exam should not preclude additional follow-up of suspicious palpable abnormalities. Note on Raya scores and lifetime risk: 1. A Raya score greater than 3% is considered moderate risk. If this is the case, consider specialist referral to assess eligibility for a risk reducing agent. 2. If overall lifetime risk for the development of breast cancer is 20% or higher, the patient may qualify for future screening with alternating mammogram and breast MRI. Electronically signed and approved by: Jeffry Velez M.D. Radiologis
== END | disposition home or self-care (01) ==
LOC: RADMAMWWP 10:35
PROVIDERS: ATTEND Internal Medicine Geriatric Medicine
DX: Z12.31 Encounter for screening mammogram for malignant neoplasm of breast (principal); Z80.3 Family history of malignant neoplasm of breast; Z78.0 Asymptomatic menopausal state
CPT/HCPCS: 77063; 77067

== ENCOUNTER → 2025-03-11 | Outpatient (CLI) | payer MEDICARE ==
--- NOTE | 2025-03-11 13:46 | MM ---
Reason for Exam: Screening (asymptomatic). Last mammogram was performed 1 year(s) and 1 month(s) ago. Patient History: Menarche at age 14. First Full-Term at age 23. Left ovary removed at age 61. Right ovary removed at age 61. Hysterectomy at age 61. Postmenopausal. Estrogen for 10 years from age 52 until age 62. Hormonal Contraceptives, starting at age 32 for 10 years. 02/16/2004, Benign Ultrasound-Guided Core Biopsy on the left side. 08/06/2003, Benign Ultrasound-Guided Core Biopsy on the right side. Sister had breast cancer, age 60. Prior Study Comparison: 01/10/2023 Bilateral MG 3D screening mammo w/cad, [facility]. 01/17/2023 Left MG 3D work up w/cad , [facility]. 02/11/2024 Bilateral MG 3D screening mammo w/cad, [facility]. Tissue Density: The breasts are heterogeneously dense, which may obscure small masses. Findings: Analyzed By CAD. There is no suspicious group of microcalcifications or new suspicious mass in either breast. Chronic nodularity right breast. Previous biopsy left breast stable. Benign calcifications. Overall Assessment: Benign, BI-RAD 2 Management: Screening Mammogram of both breasts in 1 year. . Patient should continue monthly self-breast exams. A clinical breast exam by your physician is recommended on an annual basis. This exam should not preclude additional follow-up of suspicious palpable abnormalities. Note on Raya scores and lifetime risk: 1. A Raya score greater than 3% is considered moderate risk. If this is the case, consider specialist referral to assess eligibility for a risk reducing agent. 2. If overall lifetime risk for the development of breast cancer is 20% or higher, the patient may qualify for future screening with alternating mammogram and breast MRI. [facility], , 03/11/2025 1:43 PM. Electronically signed and approved by: Augustin Chacon M.D. Radiologis
== END | disposition home or self-care (01) ==
LOC: RADMAMWWP 13:06
PROVIDERS: ATTEND Internal Medicine Geriatric Medicine
DX: Z12.31 Encounter for screening mammogram for malignant neoplasm of breast (principal); R92.333 Mammographic heterogeneous density, bilateral breasts; Z78.0 Asymptomatic menopausal state; Z80.3 Family history of malignant neoplasm of breast; Z92.0 Personal history of contraception
CPT/HCPCS: 77063; 77067